=== PATIENT | male | born 1995 | race Hispanic/Latino ===

== ENCOUNTER 2018-11-11 16:20 | Emergency (ER) | payer OTHER ==
--- OUTSIDE RECORDS SUMMARY | 2018-11-11 16:23 | XMS REPORT ---
:1995 [facility] Address [address] [place] [address] [address] [place] [address] Care Team Providers Name Role Phone Unavailable Unavailable Unavailable Problems This patient has no known problems. Allergies, Adverse Reactions, Alerts This patient has no known allergies or adverse reactions. Medications This patient has no known medications.
[2018-11-11] MEDS ORDERED: HYDROCODONE/APAP 10/325 TAB ONE (17:16)
--- NOTE | 2018-11-11 17:45 | RAD REPORT ---
EXAM DESCRIPTION: RAD - Shoulder Left 2 View - 11/11/2018 5:34 pm CLINICAL HISTORY: Slip and fall, shoulder pain COMPARISON: None. TECHNIQUE: Internal and external rotation views of the left shoulder were obtained. FINDINGS: There is no fracture or dislocation. AC joint is normal in appearance. No acute or suspici ous findings. IMPRESSION: Negative two-view left shoulder examination.
--- NOTE | 2018-11-11 17:52 | ER ---
Nurse's Notes [facility] Name: Pawel Benjamin Age: 23 yrs Sex: Male : 1995 Arrival Date: 11/11/2018 Time: 16:23 Bed Treatment Private MD: Diagnosis: Unspecified dislocation of left shoulder joint Presentation: 11/11 16:25 Presenting complaint: Patient states: slipped and fell on a ramp at work and landed on sv his left elbow. Was seen at his work occupational health and xrays were done and was sent here. Care prior to arrival: left arm sling. 16:25 Acuity: TANA 4 sv 16:25 Method Of Arrival: Ambulatory sv 16:26 Transition of care: patient was not received from another setting of care. Onset of sv symptoms was November 11, 2018. 16:26 Risk Assessment: Do you want to hurt yourself or someone else? Patient reports no iw desire to harm self or others. Initial Sepsis Screen: Does the patient meet any 2 criteria? No. Patient's initial sepsis screen is negative. Does the patient have a suspected source of infection? No. Patient's initial sepsis screen is negative. Triage Assessment: 18:00 General: Appears in no apparent distress. Behavior is calm. iw Trauma Activation: Not Applicable Physician: ED Physician; Name: ; Notified At: ; Arrived At: Physician: General Surgeon; Name: ; Notified At: ; Arrived At: Physician: Radiology; Name: ; Notified At: ; Arrived At: Physician: Respiratory; Name: ; Notified At: ; Arrived At: Physician: Lab; Name: ; Notified At: ; Arrived At: Historical: - Allergies: 16:26 No Known Allergies; sv - PMHx: 16:26 None; sv - PSHx: 16:26 Appendectomy; sv - Immunization history:: Flu vaccine is not up to date. - Social history:: Smoking status: Patient/guardian denies using tobacco. - Ebola Screening: : No symptoms or risks identified at this time. Screenin:14 Abuse screen: Denies threats or abuse. Denies injuries from another. Nutritional iw screening: No deficits noted. Tuberculosis screening: No symptoms or risk factors identified. Fall Risk None identified. Assessment: 17:15 General: Appears in no apparent distress. Behavior is calm, cooperative. Pain: iw Complains of pain in left shoulder and anterior aspect of left shoulder. Neuro: Level of Consciousness is awake, alert, obeys commands, Oriented to person, place, time. Cardiovascular: Patient's skin is warm and dry. Respiratory: Respiratory effort is even, unlabored, Respiratory pattern is regular. Derm: Skin is intact, is healthy with good turgor. Musculoskeletal: Range of motion: limited in left elbow. Vital Signs: 16:26 BP 145 / 101; Pulse 71; Resp 20; Temp 97.8; Pulse Ox 99% ; Weight 136.98 kg; Height 6 sv ft. 0 in. (182.88 cm); Pain 8/10; 16:26 Body Mass Index 40.96 (136.98 kg, 182.88 cm) sv ED Course: 16:23 Patient arrived in ED. mr 16:26 Triage completed. sv 16:27 Arm band placed on. sv 16:56 Shantelle Bah, KIRIT is Primary Nurse. iw 17:00 Susie Combs FNP-C is PHCP. kb 17:00 Nader Tenorio MD is Attending Physician. kb 17:13 Shalini Riley FNP-C is PHCP. kb 17:15 Patient has correct armband on for positive identification. iw 17:34 Shoulder Left (2 View) XRAY In Process Unspecified. EDMS 17:49 Tate Hodges MD is Referral Physician. snw 18:14 No provider procedures requiring assistance completed. Patient did not have IV access iw during this emergency room visit. Administered Medications: 17:09 CANCELLED (Patient Refused): Rowan 10 mg-325 mg 1 tabs PO once kb Outcome: 17:51 Discharge ordered by . snw 18:14 Discharged to home ambulatory, with family. iw 18:14 Condition: good 18:14 Discharge instructions given to patient, Instructed on discharge instructions, follow up and referral plans. medication usage, Demonstrated understanding of instructions, follow-up care, medications, Prescriptions given X 1. 18:15 Patient left the ED. iw Signatures: Dispatcher [employer] EDMS Susie Combs FNP-C FNP-Ckb Verde, Stephanie, RN RN sv Shalini Riley FNP-C FNP-Shahnaz Alma Marie mr Shantelle Bah, KIRIT RN iw Corrections: (The following items were deleted from the chart) 17:09 17:06 Rowan 10 mg-325 mg 1 tabs PO kb kb
--- NOTE | 2018-11-11 17:52 | EDPHYS ---
Physician Documentation [facility] Name: Pawel Benjamin Age: 23 yrs Sex: Male : 1995 Arrival Date: 11/11/2018 Time: 16:23 Bed Treatment Private MD: ED Physician Nader Tenorio HPI: 11/11 17:15 This 23 yrs old Male presents to ER via Ambulatory with complaints of Fall snw Injury, Shoulder Injury. 17:15 Details of fall: The patient fell from an upright position, while walking. Onset: The snw symptoms/episode began/occurred suddenly. Associated injuries: The patient sustained anterior aspect of left shoulder, decreased range of motion, deformity, painful injury. The patient has not experienced similar symptoms in the past. The patient has not recently seen a physician. 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 Historical: - Allergies: 16:26 No Known Allergies; sv - PMHx: 16:26 None; sv - PSHx: 16:26 Appendectomy; sv - Immunization history:: Flu vaccine is not up to date. - Social history:: Smoking status: Patient/guardian denies using tobacco. - Ebola Screening: : No symptoms or risks identified at this time. ROS: 17:15 Constitutional: Negative for fever, chills, and weight loss, Eyes: Negative for injury, snw pain, redness, and discharge, ENT: Negative for injury, pain, and discharge, Neck: Negative for injury, pain, and swelling, Cardiovascular: Negative for chest pain, palpitations, and edema, Respiratory: Negative for shortness of breath, cough, wheezing, and pleuritic chest pain, Abdomen/GI: Negative for abdominal pain, nausea, vomiting, diarrhea, and constipation, Back: Negative for injury and pain, : Negative for injury, bleeding, discharge, and swelling, Skin: Negative for injury, rash, and discoloration, Neuro: Negative for headache, weakness, numbness, tingling, and seizure. 17:15 MS/extremity: Positive for injury or acute deformity, decreased range of motion, pain, of the anterior aspect of left shoulder. Exam: 17:14 Constitutional: This is a well developed, well nourished patient who is awake, alert, snw and in no acute distress. Head/Face: Normocephalic, atraumatic. Eyes: Pupils equal round and reactive to light, extra-ocular motions intact. Lids and lashes normal. Conjunctiva and sclera are non-icteric and not injected. Cornea within normal limits. Periorbital areas with no swelling, redness, or edema. ENT: Nares patent. No nasal discharge, no septal abnormalities noted. Tympanic membranes are normal and external auditory canals are clear. Oropharynx with no redness, swelling, or masses, exudates, or evidence of obstruction, uvula midline. Mucous membranes moist. Neck: Trachea midline, no thyromegaly or masses palpated, and no cervical lymphadenopathy. Supple, full range of motion without nuchal rigidity, or vertebral point tenderness. No Meningismus. Chest/axilla: Normal chest wall appearance and motion. Nontender with no deformity. No lesions are appreciated. Cardiovascular: Regular rate and rhythm with a normal S1 and S2. No gallops, murmurs, or rubs. Normal PMI, no JVD. No pulse deficits. Respiratory: Lungs have equal breath sounds bilaterally, clear to auscultation and percussion. No rales, rhonchi or wheezes noted. No increased work of breathing, no retractions or nasal flaring. Abdomen/GI: Soft, non-tender, with normal bowel sounds. No distension or tympany. No guarding or rebound. No evidence of tenderness throughout. Back: No spinal tenderness. No costovertebral tenderness. Full range of motion. Skin: Warm, dry with normal turgor. Normal color with no rashes, no lesions, and no evidence of cellulitis. Neuro: Awake and alert, GCS 15, oriented to person, place, time, and situation. Cranial nerves II-XII grossly intact. Motor strength 5/5 in all extremities. Sensory grossly intact. Cerebellar exam normal. Normal gait. Psych: Awake, alert, with orientation to person, place and time. Behavior, mood, and affect are within normal limits. 17:14 Musculoskeletal/extremity: Extremities: grossly normal except: noted in the anterior aspect of left shoulder: decreased ROM, pain, ROM: limited active range of motion due to pain, Circulation is intact in all extremities. Sensation intact. Vital Signs: 16:26 BP 145 / 101; Pulse 71; Resp 20; Temp 97.8; Pulse Ox 99% ; Weight 136.98 kg; Height 6 sv ft. 0 in. (182.88 cm); Pain 8/10; 16:26 Body Mass Index 40.96 (136.98 kg, 182.88 cm) sv Procedures: 17:16 Reduction: of the left shoulder, using manipulation, flexion, Immobilized with shoulder snw immobilizer. Patient tolerated well. MDM: 17:00 Patient medically screened. kb 18:00 Data reviewed: vital signs, nurses notes. Data interpreted: Pulse oximetry: on room air snw is 99 %. Interpretation: normal. Counseling: I had a detailed discussion with the patient and/or guardian regarding: the historical points, exam findings, and any diagnostic results supporting the discharge/admit diagnosis, the presence of at least one elevated blood pressure reading (>120/80) during this emergency department visit, radiology results, the need for outpatient follow up, to return to the emergency department if symptoms worsen or persist or if there are any questions or concerns that arise at home. Response to treatment: the patient's symptoms have markedly improved after treatment, the patient is now symptom free, and as a result, I will discharge patient. 11/11 17:03 Order name: Shoulder Left (2 View) XRAY; Complete Time: 17:48 kb 11/11 17:16 Order name: Shoulder Immobilizer; Complete Time: 18:15 snw Administered Medications: 17:09 CANCELLED (Patient Refused): Widener 10 mg-325 mg 1 tabs PO once kb Disposition: 19:00 Co-signature as Attending Physician, Nader Tenorio MD. rn Disposition: 11/11/18 17:51 Discharged to Home. Impression: Unspecified dislocation of left shoulder joint. - Condition is Stable. - Discharge Instructions: Shoulder Dislocation, Fall Prevention in the Home, RICE for Routine Care of Injuries, How to Use a Shoulder Immobilizer, Shoulder Sprain. - Prescriptions for Motrin IB 200 mg Oral Tablet - take 2 tablet by ORAL route every 6 hours As needed as needed with food; 40 tablet. - Work release form, Medication Reconciliation Form, Thank You Letter, Antibiotic Education, Prescription Opioid Use form. - Follow up: Private Physician; When: As needed; Reason: Worsening of condition. Follow up: Emergency Department; When: As needed; Reason: Worsening of condition. Follow up: Tate Hodges MD; When: 5 - 6 days; Reason: Recheck today's complaints, Continuance of care. Signatures: Dispatcher [employer] EDMS Susie Combs, CARIN-C WAREHOUSE CONSULTANT-Ckb Hermelinda Manuel, RN RN sv Shalini Riley, CARIN-C WAREHOUSE CONSULTANT-Csnw Shantelle Bah, KIRIT RN Nader Abbott MD MD wax pattern repairer: (The following items were deleted from the chart) 17:09 17:05 Widener 10 mg-325 mg 1 tabs PO once ordered. kb kb 17:09 17:06 Widener 10 mg-325 mg 1 tabs PO once given. kb kb 17:09 17:09 Widener 10 mg-325 mg 1 tabs PO once ordered. kb kb 18:15 17:51 11/11/2018 17:51 Discharged to Home. Impression: Unspecified dislocation of left iw shoulder joint. Condition is Stable. Forms are Medication Reconciliation Form, Thank You Letter, Antibiotic Education, Prescription Opioid Use. Follow up: Private Physician; When: As needed; Reason: Worsening of condition. Follow up: Emergency Department; When: As needed; Reason: Worsening of condition. Follow up: Tate Hodges; When: 5 - 6 days; Reason: Recheck today's complaints, Continuance of care. snw
== END 2018-11-11 18:15 | disposition home or self-care (01) ==
LOC: ER 16:20
PROC: 0RSKXZZ Reposition Left Shoulder Joint, External Approach (ICD-10-PCS; principal; 2018-11-11)
DX: S43.005A Unspecified dislocation of left shoulder joint, initial encounter (principal); W01.0XXA Fall on same level from slipping, tripping and stumbling without subsequent striking against object, initial encounter; Y93.01 Activity, walking, marching and hiking; Y92.89 Other specified places as the place of occurrence of the external cause; Y99.8 Other external cause status